=== PATIENT | male | born 1995 | race Caucasian/White ===

== ENCOUNTER 2020-11-12 00:23 | Emergency (ER) | payer OTHER ==
[~2020-11-12] VITALS: Ht 182.9 cm; Wt 70.3 kg
[2020-11-12 00:30] VITALS: BP 122/68
--- NOTE | 2020-11-12 00:30 | NUR ---
ED Nurse Note: pt ambulated into ed from home co hitting top of head on metal box while walking and using cell phone at home. pt denies LOC/ALOC, dizziness, SOB. pt aao x 4, ambulates with steady gait, vss no ss of distress noted. ERMD at bedside. awaiting further orders.
--- NOTE | 2020-11-12 00:33 | Emergency Room Report ---
History of Present Illness General Chief Complaint: Head Injury Source: Patient Present Illness HPI This is a 25-year-old male with no past medical history presents with chief complaint of head injury. He was looking at his phone and ran into a metal box. He started bleeding. Minimal pain. No other injury. Did not pass out. Allergies: Coded Allergies: No Known Allergies (Unverified , 11/12/20) Patient History Past Medical History: see triage record, old chart reviewed Past Surgical History: none Pertinent Family History: none Social History: Denies: smoking Immunizations: other Reviewed Nursing Documentation: PMH: Agreed; PSxH: Agreed Nursing Documentation-PMH Past Medical History: No Stated History Review of Systems Eye: Denies: eye pain, blurred vision ENT: Denies: ear pain, nose congestion, throat swelling Respiratory: Denies: cough, shortness of breath Cardiovascular: Denies: chest pain, palpitations Gastrointestinal: Denies: abdominal pain, diarrhea, nausea, vomiting Musculoskeletal: Denies: back pain, joint pain Skin: Denies: rash Neurological: Denies: headache, numbness Endocrine: Denies: increased thirst, increased urine Hematologic/Lymphatic: Denies: easy bruising All Other Systems: negative except mentioned in HPI Physical Exam vitals unremarkable Sp02 EP Interpretation: reviewed, normal General Appearance: well appearing, no apparent distress, alert Head: normocephalic, other - 1 cm laceration to the right occiput Eyes: bilateral eye PERRL, bilateral eye EOMI ENT: hearing grossly normal, normal pharynx Neck: full range of motion, supple, no meningismus Respiratory: chest non-tender, lungs clear, normal breath sounds Cardiovascular #1: regular rate, rhythm, no murmur Gastrointestinal: normal bowel sounds, non tender, no mass, no organomegaly, no bruit, non-distended Musculoskeletal: back normal, normal range of motion, gait/station normal Psychiatric: mood/affect normal Procedures Laceration/Wound Repair Laceration/Wound Repair : Consent: Verbal Wound Location: head Wound's Depth, Shape: superficial Wound Length (cm): 1 Wound Explored: clean Wound Repaired With: luis Patient Tolerated: Well Complications: None Medical Decision Making Diagnostic Impression: Primary Impression: Acute head injury Qualified Codes: S09.90XA - Unspecified injury of head, initial encounter Additional Impression: Scalp laceration Qualified Codes: S01.01XA - Laceration without foreign body of scalp, initial encounter ER Course Patient with a head injury with a scalp laceration. No evidence of intracranial bleed or skull fracture. CT/MRI/US Diagnostic Results CT/MRI/US Diagnostic Results : Imaging Test Ordered: CT head Impression Negative per radiologist Status: improved Disposition: HOME, SELF-CARE Condition: Stable Additional Instructions: [place] out in 5 to 7 days. You can return here or see your primary care doctor for this. Return if symptoms worsen. Chai Devlin MD Nov 12, 2020 00:33
--- NOTE | 2020-11-12 00:35 | NUR ---
ED Nurse Note: wound cleaned with 75ml of sterile water. pt tolerated well no ss of distress noted. ERMD at bedside for staple placement. will continue to monitor.
--- NOTE | 2020-11-12 00:42 | NUR ---
ED Nurse Note: pt taken to ct in stable condition
--- NOTE | 2020-11-12 01:38 | Diagnostic Imaging Report ---
CT head without contrast History: Pain, trauma Technique: Axial noncontrast head CT. Technique more: CTDI is 53.4 mGy and DLP is 1205.8 mGy-cm. Technique more: One or more of the following dose reduction techniques were used: automated exposure control, adjustment of the mA and/or kV according to patient size, use of iterative reconstruction technique. Comparison: FINDINGS: No intracranial hemorrhage, abnormal intra- or extra-axial collections or parenchymal lesions are seen. The shape and configuration of the cortical sulci, basal cisterns and ventricles are within normal limits. The hart-white differentiation is preserved. No evidence of mass effect, midline shift, or edema. The osseous structures are unremarkable. The visualized portions of the paranasal sinuses are clear. IMPRESSION: Normal non-contrast CT scan of the head.
[2020-11-12 01:53] VITALS: BP 135/82
--- NOTE | 2020-11-12 01:55 | NUR ---
ER DISCHARGE NOTE: Patient is cleared to be discharged per ERMD, pt is aox4, on room air, with stable vital signs. pt was given dc and prescription instructions, pt was able to verbalize understanding, pt id band removed. pt is able to ambulate with steady gait. pt took all belongings. Pt left in a private vehicle with a friend.
== END 2020-11-12 02:00 | disposition home or self-care (01) ==
LOC: EMR 00:39
DX: S01.01XA Laceration without foreign body of scalp, initial encounter (principal); S09.90XA Unspecified injury of head, initial encounter; W22.8XXA Striking against or struck by other objects, initial encounter; Y93.01 Activity, walking, marching and hiking; Y92.9 Unspecified place or not applicable
CPT/HCPCS: 70450; 99284